=== PATIENT | male | born 1945 | race Caucasian/White ===

== ENCOUNTER → 2018-03-31 | Day surgery (SDC) | payer MEDICARE, BC ==
[2018-03-29 15:43] LABS: BASOPHILS % 0.3 % (0.0-1.0); EOSINOPHILS # (AUTO) 0.1 (0.0-0.4); EOSINOPHILS % 2.1 % (0.0-6.0); HEMATOCRIT 36.7 % (38.2-49.6); HEMOGLOBIN 12.8 g/dL (14.0-18.0); LYMPHOCYTES % 14.9 % (18.0-39.1); MEAN CORPUSCULAR HEMOGLOBIN 32.7 pg (28-32); MEAN CORPUSCULAR HGB CONC 34.9 g/dL (31-35); MEAN CORPUSCULAR VOLUME 93.6 fL (81-99); MONOCYTES # (AUTO) 0.5 (0.2-0.8); NEUTROPHILS # (AUTO) 4.9 (2.1-6.9); NEUTROPHILS % 74.2 % (38.7-80.0); PLATELET COUNT 142 x10e3/uL (140-360); RED BLOOD COUNT 3.92 x10e6/uL (4.3-5.7); RED CELL DISTRIBUTION WIDTH 13.4 % (11.7-14.4)
[~2018-03-31] MED LIST: ACETAMINOPHEN; ASPIRIN81 M2 PO; ASTEPRO30 ML NS; CALCIUM CITRAT1 EA17; CARVEDILOL12.5 MG PO; CLINDAMYCIN HC150 MG PO; CYCLOBENZAPRINE5 MG PO; CYTOMEL5 MCG PO; DIPHENHYDRAMINE; DIPHENHYDRAMINE25 M1 PO; ENTRESTO PO; EYE HEALTH VITAMIN PO; FINASTERIDE5 MG PO; FLAX SEED OIL1000 MG PO; FLAXSEED OIL; FLONASE; FUROSEMIDE; FUROSEMIDE40 MG PO; HYDROCODON-ACE1 EAC9 PO; IBUPROFEN; IBUPROFEN200 MG PO; IRBESARTAN300 MG PO; KLOR CON PO; KLOR-CON; LIDOCAINE HCL 2% LOCAL INJ 5 ML SDV VIAL INJ ONE; MIDAZOLAM HCL 2 MG/2 ML VIAL ONE; MUPIROCIN; NORCO 5-325 TA1 EACH PO; ORPHENADRINE C100 MG IM; PRAVASTATIN SOD40 MG PO; PROAIR HFA INH8.5 GM INH; PROPOFOL IV EMULSION 10 MG/ML 20 ML VIAL ONE; TERAZOSIN HCL10 MG PO; TORSEMIDE10 MG PO; TURMERIC ROOT PO; TYLENOL EXTRA500 MG PO; VIT C WITH ROSE HIPS PO; VITAMIN B COMPLEX; VITAMIN B-121000 MCG PO; VITAMIN B12; VITAMIN C PO; VITAMIN D35000 UNIT PO; WARFARIN PO; Z.0.ATENOLOL50 MG PO; Z.0.AVAPRO150 MG PO; Z.0.AVODART0.5 MG PO; Z.0.CLONIDINE HCL0.1 PO; Z.0.FLEXERIL10 MG PO; Z.0.MAGNESIUM500 MG PO; Z.0.NORVASC5 MG PO; Z.0.PRAVASTATIN SOD4 PO; Z.0.PROTONIX40 MG PO; Z.0.SYNTHROID75 MCG PO; Z.0.TERAZOSIN HCL10 PO; Z.0.ZYRTEC10 MG PO; Z.1.METFORMIN HCL100 PO; Z.4.VITAMIN E400 UNI; ZOMETA4 MG/5 ML INJ; [UNRECOGNIZED DRUG - CODE] PO; [UNRECOGNIZED DRUG - OTHER] IM; [UNRECOGNIZED DRUG - OTHER] PO; [UNRECOGNIZED DRUG - OTHER] PO; [UNRECOGNIZED DRUG - OTHER] PO; [UNRECOGNIZED DRUG - OTHER] PO
== END | disposition home or self-care (01) ==
LOC: OR 09:21
PROVIDERS: ATTEND Internal Medicine Gastroenterology
DX: Z12.11 Encounter for screening for malignant neoplasm of colon (principal); D12.5 Benign neoplasm of sigmoid colon; K64.8 Other hemorrhoids; K21.9 Gastro-esophageal reflux disease without esophagitis; E66.3 Overweight; I11.0 Hypertensive heart disease with heart failure; I50.9 Heart failure, unspecified; I34.1 Nonrheumatic mitral (valve) prolapse; E78.5 Hyperlipidemia, unspecified; I48.91 Unspecified atrial fibrillation; E03.9 Hypothyroidism, unspecified; M19.90 Unspecified osteoarthritis, unspecified site; Z91.048 Other nonmedicinal substance allergy status; Z01.810 Encounter for preprocedural cardiovascular examination; Z01.812 Encounter for preprocedural laboratory examination; Z79.82 Long term (current) use of aspirin; Z95.810 Presence of automatic (implantable) cardiac defibrillator; Z68.25 Body mass index [BMI] 25.0-25.9, adult
CPT/HCPCS: 36415; 45385; 85025; 93005; J2001; J2250

== ENCOUNTER → 2019-12-06 | Day surgery (SDC) | payer MEDICARE, BC ==
--- NOTE | 2019-12-02 14:30 | NUR ---
Checked patient temperature 97.8F via skin probe. Patient denied being out of the country in the last 14 days. Patient denied being around anyone who has been out of the country in the last 14 days. Patient denies new fever, cough or shortness of breath in last 14 days.
[2019-12-02 15:04] LABS: BASOPHILS % 0.3 % (0.0-1.0); EOSINOPHILS # (AUTO) 0.1 (0.0-0.4); EOSINOPHILS % 2.3 % (0.0-6.0); HEMATOCRIT 34.2 % (38.2-49.6); HEMOGLOBIN 11.4 g/dL (14.0-18.0); LYMPHOCYTES # (AUTO) 0.6 (1.0-3.2); LYMPHOCYTES % 15.2 % (18.0-39.1); MEAN CORPUSCULAR HEMOGLOBIN 32.4 pg (28-32); MEAN CORPUSCULAR HGB CONC 33.3 g/dL (31-35); MEAN CORPUSCULAR VOLUME 97.2 fL (81-99); MONOCYTES # (AUTO) 0.4 (0.2-0.8); MONOCYTES % 8.9 % (4.4-11.3); NEUTROPHILS # (AUTO) 2.9 (2.1-6.9); PLATELET COUNT 147 x10e3/uL (140-360); RED BLOOD COUNT 3.52 x10e6/uL (4.3-5.7); RED CELL DISTRIBUTION WIDTH 14.7 % (11.7-14.4)
[2019-12-02 15:23] LABS: ALBUMIN 4.3 g/dL (3.5-5.0); ALBUMIN/GLOBULIN RATIO 1.5 (0.8-2.0); ANION GAP 11.2 mmol/L (8-16); CALCIUM 9.5 mg/dL (8.4-10.2); CREATININE, SERUM 1.24 mg/dL (0.72-1.25); POTASSIUM 4.2 mmol/L (3.5-5.1)
[~2019-12-06] VITALS: Ht 188 cm; Wt 90.7 kg
[2019-12-06] VITALS (10 sets, daily range): BP systolic 116–144; BP diastolic 66–88
[~2019-12-06] MED LIST changes: +ACETAMINOP325 MG/10 PO; +ACETAMINOPHEN500 MG PO; +ALPRAZOLAM 0.5 MG TAB ONE; +ASPIR 8181 MG PO; +ASPIRIN81 MG PO; +ASTEPRO137 MCG/0.; +ASTEPRO205.5 MCG/ INH; +AVAPRO300 MG PO; +AVODART0.5 MG PO; +B COMPLEX1 EACH PO; +CALCIUM CITRAT1 EAC3 PO; +CALCIUM CITRAT250 MG PO; +CLONIDINE HCL0.1 MG PO; +COUMADIN10 MG PO; +CYANOCOBAL1000 MCG/M; +CYTOMEL25 MCG PO; +DIPHENHYDRAMINE HCL 25 MG CAP ONE; +DIPHENHYDRAMINE25 M2 PO; +ENTRESTO 97 MG1 EACH PO; +FENTANYL CITRATE/PF 100MCG/2 ML INJ ONE; +FLEXERIL10 MG PO; +FLONASE16 GM; +HEPARIN SOD/SOD CHLORIDE 2,000 ML ONE; +IMODIUM2 MG PO; +IOPAMIDOL 300MG/ML 100 ML INFUS..BTL IV ONE; +KLOR-CON 88 MEQ PO; +LASIX40 MG PO; +LIDOCAINE HCL 2% LOCAL 20 ML VIAL ONE; -LIDOCAINE HCL 2% LOCAL INJ 5 ML SDV VIAL INJ ONE; +MAGNESIUM PO; +MAGNESIUM500 MG PO; +METFORMIN HCL1000 M1 PO; +NORFLEX PO; +NORVASC5 MG PO; +OMEGA 3 FISH O1 EACH PO; +PANTOPRAZOLE SO40 MG PO; -PROPOFOL IV EMULSION 10 MG/ML 20 ML VIAL ONE; +RECLAST 55 MG/100 M; +SODIUM CHLORIDE 0.9% 1000ML 1,000 ML ONE; +SOTALOL120 MG PO; +SYNTHROID75 MCG PO; +TERAZOSIN HCL5 MG PO; +TESTOSTERO200 MG/11 SC; +TESTOSTERO200 MG/11 SQ; +TUMERIC PO; +TUMERIC ROOT; +TUMERIC ROOT PO; +VITAMIN B COMPLEX PO; +VITAMIN B-121000 MCG SQ; +VITAMIN C WIT1000 MG PO; +VITAMIN D 3 PO; +VITAMIN D35000 UNI1 PO; +VITAMIN E800 UNIT PO; +WARFARIN SODIUM10 MG PO; +ZYRTEC10 M3 PO; +[UNRECOGNIZED DRUG - OTHER] PO
--- OUTSIDE RECORDS SUMMARY | 2019-12-06 11:48 | XMS REPORT ---
Author [facility] Address Unknown Phone Unavailable Care Team Providers Care Professor Of Literature Name Role Phone Edwar BECK Unavailable Unavailable Payers Payer Name Policy Type Policy Number Effective Date Expiration Date Problems This patient has no known problems. Allergies, Adverse Reactions, Alerts Allergy Name Allergy Type Status Severity Reaction(s) Onset Date Inactive Date Treating Clinician Comments No Known Contrast Allergies DA Active U 2007-03-30 00:00:00 No Known Food Allergies DA Active U 2007-03-30 00:00:00 No Known Other Allergies DA Active U 2007-03-30 00:00:00 SULFA DRUGS DA Active U 2007-03-30 00:00:00 Medications This patient has no known medications. Results Test Description Test Time Test Comments Text Results Atomic Results Result Comments SP LUMBAR, COMPLETE MIN 4VW 2015-03-19 16:52:00 [place] [id number] Patient Name: ALBERTO RODRIGUEZ JR MR #: [id number] : 1945 Age/Sex: 74/M Req #: [id number] Adm Physician: Ordered by: KESHA BECK MD Report #: [id number] Location: [facility] Room/Bed: Procedure: DX/SP LUMBAR, COMPLETE MIN 4VW Exam Date: 03/19/15 Exam Time: 1617 REPORT STATUS: Signed PROCEDURE: SP LUMBAR, COMPLETE MIN 4VW COMPARISON: None. INDICATIONS: LOWER BACK PAIN FINDINGS: AP, lateral, spot lateral, and bilateral oblique radiographs of the lumbar spine show 5 non-rib bearing lumbar vertebral bodies. The vertebral body heights are maintained. Mild degenerative changes include disc space narrowing, subchondral sclerosis, and marginal osteophyte formation. The oblique projections show no spondylolysis. No spondylolisthesis. The soft tissues are normal. CONCLUSION: Mild degenerative changes, without acute abnormality. Dictated by: Semaj Meza M.D. on 03/19/2015 at 16:52 Electronically approved by: Semaj Meza M.D. on 03/19/2015 at 16:52 Dictated By: SEMAJ MEZA MD [id number] Transcribed By: ALY on 03/19/15 1652 COPY TO: KESHA BECK MD CHEST 2 VIEWS 2015-03-19 16:51:00 [place] [id number] Patient Name: ALBERTO RODRIGUEZ JR MR #: [id number] : 1945 Age/Sex: 74/M Req #: [id number] Adm Physician: Ordered by: KESHA BECK MD Report #: [id number] Location: [facility] Room/Bed: Procedure: DX/CHEST 2 VIEWS Exam Date: 03/19/15 Exam Time: 1617 REPORT STATUS: Signed PROCEDURE: Frontal and lateral views of the chest. CO MPARISON: None. INDICATIONS: BACK PAIN FINDINGS: Lines/tubes: None. Lungs: The lungs are clear. No pneumonia or pulmonary edema. Pleura: No pleural effusion or pneumothorax. Heart and mediastinum: The heart and the mediastinum are normal. Cardiac device overlies the chest. Bones: No acute bony abnormality. IMPRESSION: No acute cardiopulmonary disease. Dictated by: Semaj Meza M.D. on 03/19/2015 at 16:51 Electronically approved by: Semaj Meza M.D. on 03/19/2015 at 16:51 Dictated By: SEMAJ MEZA MD 1643 Transcribed By: ALY on 03/19/15 1651 COPY TO: KESHA BECK MD KNEE LEFT 1-2 VIEWS 2015-03-19 16:51:00 [place] [address] Patient Name: ALBERTO RODRIGUEZ JR MR #: [id number] : 1945 Age/Sex: 74/M Req #: [id number] Adm Physician: Ordered by: KESHA BECK MD Report #: [id number] Location: [facility] Room/Bed: Procedure: [id number] DX/KNEE LEFT 1-2 VIEWS Exam Date: 03/19/15 Exam Time: 1618 REPORT STATUS: Signed PROCEDURE: KNEE LEFT 1-2 VIEWS COMPARISON: No ne. INDICATIONS: KNEE PAIN FINDINGS: AP and lateral projections of the left knee show mild degenerative changes in the form of osteophytes projecting from the tibial spine and patellofemoral joint. No displaced fracture. No joint effusion. CONCLUSION: Mild degenerative changes. No acute abnormality. Dictated by: Semaj Meza M.D. on 03/19/2015 at 16:51 Electronically approved by: Semaj Meza M.D. on 03/19/2015 at 16:51 Dictated By: SEMAJ MEZA MD 1642 Transcribed By: ALY on 03/19/15 1651 COPY TO: KESHA BECK MD
--- NOTE | 2019-12-06 14:05 | NUR ---
1405am RECEIVING NOTE DESK REPRESENTATIVE RECOVERY DEPT............................................................... Bedside report received from Adilson LYNCH. Identifierx2. Alert oriented and appropriate, PERRLA, respirations even and unlabored to room air. Pulses x4 extremities equal and strong. Pedal pulses PT/DP X4 Cap fill brisk < 3 sec. Bilateral lower femoral site NO signs of oozing or hematoma. Downtime to 4pm . Assist with po intake. Skin warm and dry integrity appears D/I. IV 20g left arm, presents healthy w/o s/s of infiltration or complaint. Abdomen soft and supple. pt offered toileting, denies need to urinate or defecate. No personal affects with patient. No family. Pt verbalizes understanding of POC. Currently w/o complaint of pain or need. ds/rn
--- NOTE | 2019-12-06 16:00 | NUR ---
1600pm up to bathroom voided with clots Reported to . Md ordered 500cc open iv and recheck void Sitting on side leeroy No gross issues at site and vs stable Friend remain at bedside ds/rn
--- NOTE | 2019-12-06 17:00 | NUR ---
1700p iv infusion completed No gross issues pain,pallor or pressure. Urine noted light pink with no clots. Pt states due for urologist appt. ds/rn
--- NOTE | 2019-12-06 17:30 | NUR ---
1730p CROSS CUT SAWYER RECOVERY DISCHARGE NURSING NOTE Pt meets DC criteria. Bilateral sheath sites assessed for s/s of complication and presence of hematoma. Skin warm, dry, no discolor, and pulses present. IV removed from left hand. Distal tip appears intact. VS WNL. Pt denies pain, sob, or need at this time. Friend at BS. Review of discharge paperwork and follow up instructions. verbalized understanding. Pt to wheelchair and transported to front of hospital. Transferred to private vehicle under own strength w/o incident with DC paperwork in hand. - [facility]
--- NOTE | 2019-12-06 18:17 | Operative Report ---
DATE OF PROCEDURE: 12/06/2019 SURGEON: Julio C Mauricio MD INDICATIONS: Venous ulceration, iliac vein compression. PROCEDURES PERFORMED: 1. Venogram of bilateral iliac veins with second-order catheter placement. 2. Intravascular ultrasound of bilateral iliac veins. COMPLICATIONS: None. RECOMMENDATIONS: Medical therapy. DESCRIPTION OF PROCEDURE: Access was obtained in bilateral femoral artery using ultrasound guidance. An 8-Yoruba sheath was placed. Venograms were performed demonstrating no evidence of DVT or iliac vein compression or occlusion. Intravascular ultrasound demonstrated widely patent iliac veins without evidence of compression. No intervention deemed necessary. Both sheaths removed under manual pressure. The patient discharged home the same day. Julio C Mauricio MD KSB/MODL /[id number]
== END | disposition home or self-care (01) ==
LOC: CATH LAB 11:43 → EDSTATUS 14:00
PROVIDERS: ATTEND Internal Medicine Interventional Cardiology
DX: I82.409 Acute embolism and thrombosis of unspecified deep veins of unspecified lower extremity (principal); I87.1 Compression of vein; I48.91 Unspecified atrial fibrillation; I25.118 Atherosclerotic heart disease of native coronary artery with other forms of angina pectoris; I87.2 Venous insufficiency (chronic) (peripheral); I11.0 Hypertensive heart disease with heart failure; I50.20 Unspecified systolic (congestive) heart failure; Z88.2 Allergy status to sulfonamides; Z01.812 Encounter for preprocedural laboratory examination; Z79.82 Long term (current) use of aspirin; Z79.01 Long term (current) use of anticoagulants; Z95.0 Presence of cardiac pacemaker; Z82.3 Family history of stroke
CPT/HCPCS: 36011; 36415; 37252; 75822; 76937; 80053; 85025; C1766; C1769; J2001; J2250; J3010; J7030; Q9967; 75716; 99152; 99153; C1753

== ENCOUNTER 2020-11-09 21:26 | Inpatient (IN) | payer MEDICARE, BC ==
[~2020-11-09] VITALS: Ht 188 cm; Wt 2.7 kg
[~2020-11-09 21:26] MED LIST changes: -ALPRAZOLAM 0.5 MG TAB ONE; -DIPHENHYDRAMINE HCL 25 MG CAP ONE; -FENTANYL CITRATE/PF 100MCG/2 ML INJ ONE; -HEPARIN SOD/SOD CHLORIDE 2,000 ML ONE; -IOPAMIDOL 300MG/ML 100 ML INFUS..BTL IV ONE; -LIDOCAINE HCL 2% LOCAL 20 ML VIAL ONE; -MIDAZOLAM HCL 2 MG/2 ML VIAL ONE; -SODIUM CHLORIDE 0.9% 1000ML 1,000 ML ONE
[2020-11-09] MEDS ORDERED: ASPIRIN 81 MG CHEW TAB PO ONE (21:45)
[2020-11-09 21:47] LABS: BASOPHILS # (AUTO) 0.1 (0.0-0.1); BASOPHILS % 0.2 % (0.0-1.0); EOSINOPHILS % 0.1 % (0.0-6.0); HEMATOCRIT 31.9 % (38.2-49.6); LYMPHOCYTES # (AUTO) 0.3 (1.0-3.2); LYMPHOCYTES % 1.6 % (18.0-39.1); MEAN CORPUSCULAR HEMOGLOBIN 31.6 pg (28-32); MEAN CORPUSCULAR HGB CONC 34.5 g/dL (31-35); MEAN CORPUSCULAR VOLUME 91.7 fL (81-99); MONOCYTES # (AUTO) 0.7 (0.2-0.8); MONOCYTES % 3.4 % (4.4-11.3); NEUTROPHILS # (AUTO) 19.5 (2.1-6.9); NEUTROPHILS % 93.5 % (38.7-80.0); PLATELET COUNT 233 x10e3/uL (140-360); RED BLOOD COUNT 3.48 x10e6/uL (4.3-5.7); RED CELL DISTRIBUTION WIDTH 15.1 % (11.7-14.4)
[2020-11-09 22:03] LABS: ALBUMIN 3.1 g/dL (3.5-5.0); ALBUMIN/GLOBULIN RATIO 0.9 (0.8-2.0); CALCIUM 8.4 mg/dL (8.4-10.2); CREATININE, SERUM 2.68 mg/dL (0.72-1.25)
[2020-11-09 22:10] LABS: CREATINE KINASE MB 7.7 ng/mL (0-5.0)
[2020-11-09] MEDS ORDERED: MORPHINE SULFATE INJ 4 MG/ML INJ 1ML IV PRN (23:30)
[2020-11-09] MEDS ORDERED: ONDANSETRON HCL INJ 2MG/ML 2ML 2 MG/ML VIAL IV PRN (23:30)
[2020-11-09] MEDS: PIPERACILLIN/TAZOBAC 3.375 GM in SODIUM CHLORIDE 0.9% 50ML 50 ML IV SCH (23:30)
[2020-11-10] VITALS (8 sets, daily range): BP systolic 99–116; BP diastolic 53–63
[2020-11-10] MEDS: ACETAMINOPHEN/CODEINE 300MG - 30MG TAB PO PRN
[2020-11-10] MEDS: PIPERACILLIN/TAZOBAC 3.375 GM in SODIUM CHLORIDE 0.9% 50ML 50 ML IV SCH ×4 (00:32→18:48)
[2020-11-10] MEDS: HYDROCODONE/APAP 5MG-325MG TAB PO PRN ×2 (04:35→21:16)
[2020-11-10] MEDS ORDERED: HYDROCODONE/APAP 5MG-325MG TAB ONE (04:41)
[2020-11-10] MEDS ORDERED: PIPERACILLIN/TAZOBAC 3.375 GM VIAL ONE ×2 (05:41→17:43)
[2020-11-10] MEDS ORDERED: SODIUM CHLORIDE 0.9% 250ML 250 ML ONE (05:42)
[2020-11-10] MEDS ORDERED: SODIUM CHLORIDE 0.9% 50ML 50 ML ONE ×2 (05:43→17:43)
[2020-11-10 05:53] LABS: BASOPHILS # (AUTO) 0.1 (0.0-0.1); BASOPHILS % 0.3 % (0.0-1.0); HEMATOCRIT 31.2 % (38.2-49.6); HEMOGLOBIN 10.9 g/dL (14.0-18.0); LYMPHOCYTES # (AUTO) 0.5 (1.0-3.2); LYMPHOCYTES % 2.8 % (18.0-39.1); MEAN CORPUSCULAR HEMOGLOBIN 31.7 pg (28-32); MEAN CORPUSCULAR HGB CONC 34.9 g/dL (31-35); MEAN CORPUSCULAR VOLUME 90.7 fL (81-99); MONOCYTES # (AUTO) 0.6 (0.2-0.8); MONOCYTES % 3.5 % (4.4-11.3); NEUTROPHILS # (AUTO) 15.1 (2.1-6.9); NEUTROPHILS % 92.7 % (38.7-80.0); PLATELET COUNT 218 x10e3/uL (140-360); RED BLOOD COUNT 3.44 x10e6/uL (4.3-5.7)
[2020-11-10] MEDS: LEVOTHYROXINE SODIUM 75 MCG TAB PO SCH (05:58)
[2020-11-10] MEDS ORDERED: LEVOTHYROXINE SODIUM 75 MCG TAB ONE (06:05)
[2020-11-10 06:06] LABS: ALBUMIN 2.7 g/dL (3.5-5.0); ALBUMIN/GLOBULIN RATIO 0.8 (0.8-2.0); ANION GAP 16.4 mmol/L (8-16); CREATININE, SERUM 2.4 mg/dL (0.72-1.25); POTASSIUM 4.4 mmol/L (3.5-5.1)
[2020-11-10 06:23] LABS: CREATINE KINASE MB 16.8 ng/mL (0-5.0)
[2020-11-10] MEDS: CARVEDILOL 12.5 MG TAB PO SCH ×2 (09:00→17:00)
[2020-11-10] MEDS: FUROSEMIDE INJ 10 MG/ML 2 ML VIAL IV SCH ×4 (09:56→18:49)
[2020-11-10] MEDS: LIOTHYRONINE SODIUM 5 MCG TAB PO SCH (09:57)
[2020-11-10] MEDS: FINASTERIDE 5 MG TAB PO SCH (09:57)
[2020-11-10 13:14] LABS: ANION GAP 16.1 mmol/L (8-16); CALCIUM 8.2 mg/dL (8.4-10.2); CREATININE, SERUM 2.27 mg/dL (0.72-1.25); POTASSIUM 4.1 mmol/L (3.5-5.1)
[2020-11-11] VITALS (8 sets, daily range): BP systolic 100–118; BP diastolic 57–64
[2020-11-11] MEDS ORDERED: PIPERACILLIN/TAZOBAC 3.375 GM VIAL ONE ×4 (00:43→15:30)
[2020-11-11] MEDS ORDERED: SODIUM CHLORIDE 0.9% 50ML 50 ML ONE ×4 (00:44→15:31)
[2020-11-11] MEDS: PIPERACILLIN/TAZOBAC 3.375 GM in SODIUM CHLORIDE 0.9% 50ML 50 ML IV SCH ×4 (01:00→17:07)
[2020-11-11] MEDS ORDERED: VANCOMYCIN 1GM/NS 250 ML 250 ML IV SCH (05:45)
[2020-11-11] MEDS: LEVOTHYROXINE SODIUM 75 MCG TAB PO SCH (06:03)
[2020-11-11 06:42] LABS: CALCIUM 8.1 mg/dL (8.4-10.2); CREATININE, SERUM 2.03 mg/dL (0.72-1.25)
[2020-11-11 07:09] LABS: THYROID STIMULATING HORMONE 2.627 uIU/mL (0.350-4.940)
[2020-11-11 07:19] LABS: BASOPHILS % 0.2 % (0.0-1.0); EOSINOPHILS % 0.1 % (0.0-6.0); HEMATOCRIT 30.6 % (38.2-49.6); HEMOGLOBIN 10.6 g/dL (14.0-18.0); LYMPHOCYTES # (AUTO) 0.6 (1.0-3.2); LYMPHOCYTES % 4.4 % (18.0-39.1); MEAN CORPUSCULAR HEMOGLOBIN 31.4 pg (28-32); MEAN CORPUSCULAR HGB CONC 34.6 g/dL (31-35); MEAN CORPUSCULAR VOLUME 90.5 fL (81-99); MONOCYTES # (AUTO) 0.9 (0.2-0.8); NEUTROPHILS # (AUTO) 12.7 (2.1-6.9); NEUTROPHILS % 88.5 % (38.7-80.0); PLATELET COUNT 219 x10e3/uL (140-360); RED BLOOD COUNT 3.38 x10e6/uL (4.3-5.7); RED CELL DISTRIBUTION WIDTH 15.3 % (11.7-14.4)
[2020-11-11 07:35] LABS: ALBUMIN 2.5 g/dL (3.5-5.0); BILIRUBIN,DIRECT 1.3 mg/dL (0.0-0.5); MAGNESIUM 2.6 MG/DL (1.3-2.1)
[2020-11-11] MEDS: CARVEDILOL 12.5 MG TAB PO SCH ×2 (09:00→17:00)
[2020-11-11 09:33] LABS: INR 4.15
[2020-11-11 09:41] LABS: PROTHROMBIN TIME 43.9 seconds (11.9-14.5)
[2020-11-11] MEDS: LIOTHYRONINE SODIUM 5 MCG TAB PO SCH (09:42)
[2020-11-11] MEDS: FINASTERIDE 5 MG TAB PO SCH (09:42)
[2020-11-11] MEDS: FUROSEMIDE INJ 10 MG/ML 4 ML VIAL IV SCH ×2 (09:46→17:00)
[2020-11-11] MEDS: HYDROCODONE/APAP 5MG-325MG TAB PO PRN (20:28)
[2020-11-11] MEDS: CEFTRIAXONE SOD 1 GM in DEXTROSE 5% 50ML 50 ML IV SCH (22:57)
[2020-11-12] VITALS (7 sets, daily range): BP systolic 78–124; BP diastolic 57–68
[2020-11-12] MEDS: LEVOTHYROXINE SODIUM 75 MCG TAB PO SCH (06:14)
[2020-11-12 07:49] LABS: BASOPHILS % 0.2 % (0.0-1.0); EOSINOPHILS # (AUTO) 0.1 (0.0-0.4); EOSINOPHILS % 0.4 % (0.0-6.0); HEMATOCRIT 33.1 % (38.2-49.6); HEMOGLOBIN 11.5 g/dL (14.0-18.0); LYMPHOCYTES # (AUTO) 0.7 (1.0-3.2); LYMPHOCYTES % 5.3 % (18.0-39.1); MEAN CORPUSCULAR HGB CONC 34.7 g/dL (31-35); MEAN CORPUSCULAR VOLUME 92.2 fL (81-99); MONOCYTES # (AUTO) 0.7 (0.2-0.8); MONOCYTES % 5.4 % (4.4-11.3); NEUTROPHILS # (AUTO) 11.1 (2.1-6.9); NEUTROPHILS % 87.8 % (38.7-80.0); PLATELET COUNT 297 x10e3/uL (140-360); RED BLOOD COUNT 3.59 x10e6/uL (4.3-5.7); RED CELL DISTRIBUTION WIDTH 15.1 % (11.7-14.4)
[2020-11-12 08:05] LABS: INR 2.3; PROTHROMBIN TIME 27.2 seconds (11.9-14.5)
[2020-11-12 08:12] LABS: ALBUMIN 2.6 g/dL (3.5-5.0); ALBUMIN/GLOBULIN RATIO 0.7 (0.8-2.0); ANION GAP 12.1 mmol/L (8-16); CALCIUM 8.4 mg/dL (8.4-10.2); CREATININE, SERUM 1.62 mg/dL (0.72-1.25); MAGNESIUM 2.4 MG/DL (1.3-2.1); POTASSIUM 4.1 mmol/L (3.5-5.1)
[2020-11-12] MEDS: FINASTERIDE 5 MG TAB PO SCH (09:56)
[2020-11-12] MEDS: FUROSEMIDE INJ 10 MG/ML 4 ML VIAL IV SCH ×2 (09:56→18:09)
[2020-11-12] MEDS: LIOTHYRONINE SODIUM 5 MCG TAB PO SCH (09:56)
[2020-11-12] MEDS: CARVEDILOL 12.5 MG TAB PO SCH (09:56)
[2020-11-12] MEDS: CEFTRIAXONE SOD 1 GM in DEXTROSE 5% 50ML 50 ML IV SCH ×2 (09:56→21:18)
[2020-11-12] MEDS: HYDROCODONE/APAP 5MG-325MG TAB PO PRN (09:57)
[2020-11-12] MEDS ORDERED: ONDANSETRON HCL 4 MG ORAL DISINTEGRATING TAB PO PRN (14:15)
[2020-11-12] MEDS ORDERED: SODIUM CHLORIDE 0.9% 1000ML 1,000 ML IV SCH (16:15)
[2020-11-13] VITALS (8 sets, daily range): BP systolic 101–124; BP diastolic 50–74
[2020-11-13] MEDS: HYDROCODONE/APAP 5MG-325MG TAB PO PRN ×2 (01:39→19:21)
[2020-11-13 05:17] LABS: BASOPHILS % 0.2 % (0.0-1.0); EOSINOPHILS % 0.3 % (0.0-6.0); HEMATOCRIT 28.8 % (38.2-49.6); HEMOGLOBIN 9.9 g/dL (14.0-18.0); LYMPHOCYTES # (AUTO) 0.7 (1.0-3.2); LYMPHOCYTES % 6.9 % (18.0-39.1); MEAN CORPUSCULAR HEMOGLOBIN 31.2 pg (28-32); MEAN CORPUSCULAR HGB CONC 34.4 g/dL (31-35); MEAN CORPUSCULAR VOLUME 90.9 fL (81-99); MONOCYTES # (AUTO) 0.7 (0.2-0.8); MONOCYTES % 7.8 % (4.4-11.3); NEUTROPHILS # (AUTO) 7.8 (2.1-6.9); NEUTROPHILS % 83.7 % (38.7-80.0); PLATELET COUNT 277 x10e3/uL (140-360); RED BLOOD COUNT 3.17 x10e6/uL (4.3-5.7); RED CELL DISTRIBUTION WIDTH 15.2 % (11.7-14.4)
[2020-11-13 05:33] LABS: INR 1.98
[2020-11-13 05:36] LABS: ALBUMIN 2.6 g/dL (3.5-5.0); ALBUMIN/GLOBULIN RATIO 0.7 (0.8-2.0); ANION GAP 11.9 mmol/L (8-16); CALCIUM 8.1 mg/dL (8.4-10.2); CREATININE, SERUM 1.34 mg/dL (0.72-1.25); MAGNESIUM 2.1 MG/DL (1.3-2.1); POTASSIUM 3.9 mmol/L (3.5-5.1)
[2020-11-13] MEDS: LEVOTHYROXINE SODIUM 75 MCG TAB PO SCH (06:00)
[2020-11-13] MEDS: LIOTHYRONINE SODIUM 5 MCG TAB PO SCH (08:55)
[2020-11-13] MEDS: FINASTERIDE 5 MG TAB PO SCH (08:55)
[2020-11-13] MEDS: CEFTRIAXONE SOD 1 GM in DEXTROSE 5% 50ML 50 ML IV SCH ×2 (08:55→21:51)
[2020-11-13] MEDS: FUROSEMIDE INJ 10 MG/ML 4 ML VIAL IV SCH (08:55)
[2020-11-14 00:18] VITALS: BP 127/68
[2020-11-14 04:43] VITALS: BP 118/68
[2020-11-14] MEDS: LEVOTHYROXINE SODIUM 75 MCG TAB PO SCH (05:09)
[2020-11-14] MEDS: ACETAMINOPHEN/CODEINE 300MG - 30MG TAB PO PRN (05:17)
[2020-11-14 06:09] LABS: ANION GAP 12.1 mmol/L (8-16); CALCIUM 8.5 mg/dL (8.4-10.2); CREATININE, SERUM 1.3 mg/dL (0.72-1.25); POTASSIUM 4.1 mmol/L (3.5-5.1)
[2020-11-14 07:53] VITALS: BP 131/72
[2020-11-14 08:22] VITALS: BP 131/72
[2020-11-14] MEDS: FINASTERIDE 5 MG TAB PO SCH (08:28)
[2020-11-14] MEDS: LIOTHYRONINE SODIUM 5 MCG TAB PO SCH (08:28)
[2020-11-14] MEDS ORDERED: BUMETANIDE 1 MG TAB PO SCH (09:00)
[2020-11-14] MEDS ORDERED: CEFTRIAXONE SOD 1 GM VIAL ONE (09:34)
[2020-11-14] MEDS: CEFTRIAXONE SOD 1 GM in DEXTROSE 5% 50ML 50 ML IV SCH (09:52)
[2020-11-14] MEDS ORDERED: LEVOFLOXACIN250 MG PO (11:19)
[2020-11-14 12:06] VITALS: BP 120/77
== END 2020-11-14 13:30 | disposition home or self-care (01) | DRG 871 ==
LOC: ER 21:34 → ERHOLD 23:43 → MED/SURG 11-10 00:31
PROVIDERS: ADMIT Family Medicine; ATTEND Family Medicine
DX: A40.1 Sepsis due to streptococcus, group B (principal); I50.23 Acute on chronic systolic (congestive) heart failure; N17.9 Acute kidney failure, unspecified; E87.1 Hypo-osmolality and hyponatremia; I13.0 Hypertensive heart and chronic kidney disease with heart failure and stage 1 through stage 4 chronic kidney disease, or unspecified chronic kidney disease; E03.9 Hypothyroidism, unspecified; Z20.822 Contact with and (suspected) exposure to COVID-19; E83.41 Hypermagnesemia; I25.10 Atherosclerotic heart disease of native coronary artery without angina pectoris; N18.30 Chronic kidney disease, stage 3 unspecified; E78.5 Hyperlipidemia, unspecified; Z95.810 Presence of automatic (implantable) cardiac defibrillator; I48.91 Unspecified atrial fibrillation; D64.9 Anemia, unspecified
CPT/HCPCS: 36415; 71045; 76770; 80048; 80053; 80076; 82550; 82553; 83605; 83735; 83880; 83935; 84300; 84443; 84484; 85025; 85610; 87040; 87071; 87205; 93005; 93306; 93880; 97139; 99284; J0696; J1940; J2543; J3370; J7050; U0002

== ENCOUNTER 2020-12-05 17:01 | Inpatient (IN) | payer MEDICARE, BC ==
[~2020-12-05] VITALS: Ht 188 cm; Wt 89.8 kg
[~2020-12-05 17:01] MED LIST changes: +LEVOFLOXACIN250 MG PO
[2020-12-05] MEDS ORDERED: SODIUM CHLORIDE 0.9% 100 ML ONE (17:44)
[2020-12-05] MEDS ORDERED: IOPAMIDOL 370 MG/ML 200 ML INFUS..BTL INJ ONE (17:44)
[2020-12-05 17:54] LABS: BASOPHILS % 0.2 % (0.0-1.0); EOSINOPHILS # (AUTO) 0.1 (0.0-0.4); EOSINOPHILS % 1.3 % (0.0-6.0); HEMATOCRIT 28.6 % (38.2-49.6); HEMOGLOBIN 9.6 g/dL (14.0-18.0); LYMPHOCYTES # (AUTO) 0.6 (1.0-3.2); LYMPHOCYTES % 12.1 % (18.0-39.1); MEAN CORPUSCULAR HEMOGLOBIN 31.2 pg (28-32); MEAN CORPUSCULAR HGB CONC 33.6 g/dL (31-35); MEAN CORPUSCULAR VOLUME 92.9 fL (81-99); MONOCYTES # (AUTO) 0.6 (0.2-0.8); MONOCYTES % 10.5 % (4.4-11.3); NEUTROPHILS # (AUTO) 3.9 (2.1-6.9); NEUTROPHILS % 75.5 % (38.7-80.0); PLATELET COUNT 256 x10e3/uL (140-360); RED BLOOD COUNT 3.08 x10e6/uL (4.3-5.7); RED CELL DISTRIBUTION WIDTH 15.6 % (11.7-14.4)
[2020-12-05 17:58] LABS: INR 2.01; PROTHROMBIN TIME 24.3 seconds (11.9-14.5)
[2020-12-05 17:59] LABS: PARTIAL THROMBOPLASTIN TIME 27.4 seconds (23.8-35.5)
[2020-12-05 18:07] LABS: ALBUMIN 3.4 g/dL (3.5-5.0); ALBUMIN/GLOBULIN RATIO 0.7 (0.8-2.0); ANION GAP 12.9 mmol/L (8-16); CALCIUM 8.7 mg/dL (8.4-10.2); CREATININE, SERUM 1.53 mg/dL (0.72-1.25); POTASSIUM 4.9 mmol/L (3.5-5.1)
[2020-12-05] MEDS ORDERED: SODIUM CHLORIDE 0.9% 500ML 500 ML IV ONE (19:00)
[2020-12-05] MEDS ORDERED: ONDANSETRON HCL INJ 2MG/ML 2ML 2 MG/ML VIAL IV PRN (19:15)
[2020-12-05] MEDS ORDERED: SODIUM CHLORIDE FLUSH 10 ML SYR INJ PRN (19:15)
[2020-12-05] MEDS ORDERED: MORPHINE SULFATE INJ 2 MG/ML SYR IV PRN (19:15)
[2020-12-05 20:30] VITALS: BP 119/67
[2020-12-05 21:47] VITALS: BP 119/67
[2020-12-05 22:00] VITALS: BP 119/67
[2020-12-06] VITALS (10 sets, daily range): BP systolic 108–120; BP diastolic 56–69
[2020-12-06 02:41] LABS: CREATINE KINASE MB 1.3 ng/mL (0-5.0)
[2020-12-06 05:09] LABS: BASOPHILS % 0.2 % (0.0-1.0); EOSINOPHILS # (AUTO) 0.1 (0.0-0.4); EOSINOPHILS % 2.4 % (0.0-6.0); HEMOGLOBIN 8.4 g/dL (14.0-18.0); LYMPHOCYTES # (AUTO) 0.6 (1.0-3.2); LYMPHOCYTES % 13.4 % (18.0-39.1); MEAN CORPUSCULAR HEMOGLOBIN 31.8 pg (28-32); MEAN CORPUSCULAR HGB CONC 33.6 g/dL (31-35); MEAN CORPUSCULAR VOLUME 94.7 fL (81-99); MONOCYTES # (AUTO) 0.5 (0.2-0.8); MONOCYTES % 10.8 % (4.4-11.3); NEUTROPHILS # (AUTO) 3.1 (2.1-6.9); PLATELET COUNT 177 x10e3/uL (140-360); RED BLOOD COUNT 2.64 x10e6/uL (4.3-5.7); RED CELL DISTRIBUTION WIDTH 15.7 % (11.7-14.4)
[2020-12-06 05:28] LABS: ANION GAP 10.6 mmol/L (8-16); CALCIUM 8.2 mg/dL (8.4-10.2); CHOL/HDL RATIO 2.3 (3.9-4.7); CREATININE, SERUM 1.2 mg/dL (0.72-1.25); POTASSIUM 3.6 mmol/L (3.5-5.1)
[2020-12-06] MEDS ORDERED: HYDROCODONE/APAP 5MG-325MG TAB PO PRN ×2 (05:45→07:15)
[2020-12-06] MEDS ORDERED: TORSEMIDE 10 MG TAB PO PRN (07:15)
[2020-12-06] MEDS ORDERED: LOPERAMIDE HCL 2 MG CAP PO PRN (07:15)
[2020-12-06] MEDS ORDERED: LORATADINE 10 MG TAB PO PRN (07:15)
[2020-12-06] MEDS ORDERED: ACETAMINOPHEN 325 MG TAB PO PRN ×2 (07:15→21:45)
[2020-12-06] MEDS: LIOTHYRONINE SODIUM 5 MCG TAB PO SCH (09:25)
[2020-12-06] MEDS: OMEGA 3 POLYUNSAT FATTY ACIDS 1000 MG SOFTGEL PO SCH (09:25)
[2020-12-06] MEDS: ASPIRIN 81 MG ENTERIC COATED PO SCH (09:25)
[2020-12-06] MEDS: LEVOTHYROXINE SODIUM 75 MCG TAB PO SCH (09:25)
[2020-12-06] MEDS: CARVEDILOL 12.5 MG TAB PO SCH ×2 (09:26→16:33)
[2020-12-06] MEDS ORDERED: SACUBITRIL/VALSARTAN 1 EACH TABLET PO SCH (10:00)
[2020-12-06 11:26] LABS: CREATINE KINASE MB 1.2 ng/mL (0-5.0)
[2020-12-06] MEDS ORDERED: FUROSEMIDE INJ 10 MG/ML 4 ML VIAL IV ONE (13:30)
[2020-12-06] MEDS ORDERED: FINASTERIDE 5 MG TAB PO SCH (21:00)
[2020-12-07] VITALS: BP 110/60
[2020-12-07 04:00] VITALS: BP 126/68
[2020-12-07] MEDS: LEVOTHYROXINE SODIUM 75 MCG TAB PO SCH (05:53)
[2020-12-07 06:49] LABS: BASOPHILS % 0.2 % (0.0-1.0); EOSINOPHILS # (AUTO) 0.1 (0.0-0.4); EOSINOPHILS % 1.2 % (0.0-6.0); HEMATOCRIT 30.2 % (38.2-49.6); HEMOGLOBIN 9.9 g/dL (14.0-18.0); LYMPHOCYTES # (AUTO) 0.5 (1.0-3.2); LYMPHOCYTES % 10.3 % (18.0-39.1); MEAN CORPUSCULAR HEMOGLOBIN 30.7 pg (28-32); MEAN CORPUSCULAR HGB CONC 32.8 g/dL (31-35); MEAN CORPUSCULAR VOLUME 93.8 fL (81-99); MONOCYTES # (AUTO) 0.5 (0.2-0.8); MONOCYTES % 9.1 % (4.4-11.3); NEUTROPHILS # (AUTO) 3.9 (2.1-6.9); PLATELET COUNT 232 x10e3/uL (140-360); RED BLOOD COUNT 3.22 x10e6/uL (4.3-5.7); RED CELL DISTRIBUTION WIDTH 15.8 % (11.7-14.4)
[2020-12-07 07:12] LABS: INR 1.77
[2020-12-07 07:17] LABS: ANION GAP 12.7 mmol/L (8-16); BLOOD UREA NITROGEN 19 mg/dL (7-26); BUN/CREATININE RATIO 18 (6-25); CALCIUM 8.6 mg/dL (8.4-10.2); CARBON DIOXIDE 31 mmol/L (22-29); CHLORIDE 94 mmol/L (98-107); CREATININE, SERUM 1.08 mg/dL (0.72-1.25); EST GLOMERULAR FILTRATION RATE > 60 ML/MIN (60-); GLUCOSE 99 mg/dL (74-118); POTASSIUM 3.7 mmol/L (3.5-5.1); SODIUM 134 mmol/L (136-145)
[2020-12-07 07:50] VITALS: BP 128/73
[2020-12-07 08:50] VITALS: BP 128/73
[2020-12-07] MEDS ORDERED: TORSEMIDE 10 MG TAB PO SCH (09:00)
[2020-12-07] MEDS: ASPIRIN 81 MG ENTERIC COATED PO SCH ×2 (09:00→16:11)
[2020-12-07 11:17] VITALS: BP 132/73
[2020-12-07 16:00] VITALS: BP 132/74
[2020-12-07] MEDS: SACUBITRIL/VALSARTAN 1 EACH TABLET PO SCH ×2 (16:11→16:12)
[2020-12-07] MEDS: LIOTHYRONINE SODIUM 5 MCG TAB PO SCH (16:11)
[2020-12-07] MEDS: OMEGA 3 POLYUNSAT FATTY ACIDS 1000 MG SOFTGEL PO SCH (16:11)
[2020-12-07] MEDS: CARVEDILOL 12.5 MG TAB PO SCH (16:13)
[2020-12-07 17:46] LABS: BODY FLUID APPEARANCE CLOUDY; BODY FLUID COLOR YELLOW; BODY FLUID TYPE PLEURAL
[2020-12-07 17:49] LABS: RBC,BODY FLUID 105 cells/uL; WBC,BODY FLUID 67 cells/uL
[2020-12-07 18:41] LABS: LYMPHOCYTES,BODY FLUID 19 %; MONO/MACROPHG,BODY FLUID 46 %; NEUTROPHILS,BODY FLUID 9 %; OTHER CELLS,BODY FLUID 26 %
== END 2020-12-07 19:52 | disposition home or self-care (01) | DRG 187 ==
LOC: ER 17:20 → ERHOLD 20:28 → MED/SURG 21:42 → OBSVTOIN 12-06 07:37
PROVIDERS: ADMIT Family Medicine; ATTEND Family Medicine
PROC: 0W993ZZ Drainage of Right Pleural Cavity, Percutaneous Approach (ICD-10-PCS; principal; 2020-12-07)
DX: J90 Pleural effusion, not elsewhere classified (principal); I50.22 Chronic systolic (congestive) heart failure; J44.9 Chronic obstructive pulmonary disease, unspecified; E78.5 Hyperlipidemia, unspecified; I48.91 Unspecified atrial fibrillation; E03.9 Hypothyroidism, unspecified; I25.10 Atherosclerotic heart disease of native coronary artery without angina pectoris; I11.0 Hypertensive heart disease with heart failure; R53.81 Other malaise; Z91.048 Other nonmedicinal substance allergy status; Z95.810 Presence of automatic (implantable) cardiac defibrillator; Z20.822 Contact with and (suspected) exposure to COVID-19
CPT/HCPCS: 32555; 36415; 71045; 71275; 74470; 76604; 80048; 80053; 80061; 82550; 82553; 83615; 83880; 84157; 84484; 85025; 85610; 85730; 87070; 87205; 88112; 88305; 89051; 93005; 93306; 99284; G0378; J1940; J7040; J7050; Q9967; U0002

== ENCOUNTER → 2021-02-11 | Outpatient (CLI) | payer MEDICARE, BC | LOC: RAD 13:39 | PROVIDERS: ATTEND Internal Medicine | DX: J90 Pleural effusion, not elsewhere classified (principal) | CPT/HCPCS: 71046 ==